=== PATIENT | female | born 1925 | race Caucasian/White ===

== ENCOUNTER 2017-09-01 18:50 | Inpatient (IN) ==
[2017-09-01] MEDS: Albuterol 2.5 MG/3 ML NEBULIZER IH ONE ×2 (19:00→21:37)
[2017-09-01] MEDS ORDERED: 0.9 % Sodium Chloride 1,000 ML IVC ONE (19:04)
[2017-09-01] MEDS ORDERED: Ipratropium/Albuterol Neb 3 ML IH ONE (19:05)
[2017-09-01] MEDS ORDERED: methylPREDNISolone 125 MG/2 ML VIAL IVP ONE (19:05)
[2017-09-01 19:27] LABS: Basophils % 0.1 %; Eosinophils # 0.1 K/mcL (0.0-0.6); Eosinophils % 0.5 %; Hematocrit 36.5 % (35.3-44.9); Hemoglobin 12.8 g/dL (11.5-15.4); Immature Granulocytes % 0.6 % (0-4); Lymphocytes # 0.8 K/mcL (0.6-4.6); Lymphocytes % 6.1 %; Mean Corpuscular HGB Conc 35.1 g/dL (31.6-35.5); Mean Corpuscular Hemoglobin 30.3 pg (28.0-33.3); Mean Corpuscular Volume 86.5 fL (83.0-100.0); Mean Platelet Volume 9.6 fL (9.4-12.4); Monocytes # 1.1 K/mcL (0.0-1.3); Neutrophils # 10.3 K/mcL (1.6-8.9); Platelet Count 275 K/mcL (140-400); Red Blood Count 4.22 M/mcL (3.82-4.97); Red Cell Distribution Width 12.5 % (11.5-14.5); Segmented Neutrophils % 83.7 %
[2017-09-01 19:28] LABS: ABG Base Excess 8 mEq/L (-2 to 3); ABG HCO3 32 mEq/L (21-27); ABG Oxygen Saturation 90 % (95-98); ABG PCO2 39 mmHg (35-45); ABG PH 7.52 pH Units (7.32-7.45); ABG PO2 54 mmHg (85-104); ABG TCO2 33 mEq/L (20-26)
[2017-09-01 19:36] LABS: INR 1.3; Prothrombin Time 14.6 Seconds (9.4-12.1)
[2017-09-01 19:38] LABS: Activated Partial Thrombo Time 28.6 Seconds (26.0-36.0)
[2017-09-01 19:39] LABS: Alanine Aminotransferase 76 Units/L (0-55); Albumin 3.2 g/dL (3.5-5.0); Albumin/Globulin Ratio 0.8 (1.1-2.2); Alkaline Phosphatase 174 Units/L (38-126); Aspartate Amino Transferase 96 Units/L (5-34); BUN/Creatinine Ratio 20 (6-26); Bilirubin,Direct 0.9 mg/dL (0.0-0.5); Bilirubin,Indirect 0.8 mg/dL (0.0-1.2); Bilirubin,Total 1.7 mg/dL (0.2-1.2); Blood Urea Nitrogen 15 mg/dL (7-20); Calcium 9.7 mg/dL (8.6-10.8); Carbon Dioxide 31 mEq/L (19-29); Chloride 87 mEq/L (98-109); Glucose 152 mg/dL (70-99); Magnesium 1.5 mg/dL (1.6-2.6); Osmolality,Calculated 272 (280-300); Phosphorous 2.4 mg/dL (2.3-4.7); Potassium 3.1 mEq/L (3.5-4.5); Sodium 129 mEq/L (136-145); Total Protein 7.2 g/dL (6.0-8.3); eGFR For African Americans > 60 (> 60); eGFR For Non-African Americans > 60 (> 60)
--- NOTE | 2017-09-01 19:43 | Emergency Department Note ---
Disposition Clinical Impression: Acute exacerbation of chronic obstructive airways disease, Sepsis Community acquired pneumonia Qualifiers: Laterality: right Lung location: unspecified part of lung Qualified Code(s): J18.9 - Pneumonia, unspecified organism Disposition: Admitted As Inpatient Condition: Fair Referrals: NONE,PCP [Primary Care Provider] - Forms: ED Satisfaction Letter Time of Disposition: 20:51 SOB HPI - General Chief Complaint: ED Shortness of Breath/Dyspnea Stated Complaint: MONSE Time Seen by Provider: 09/01/17 19:00 Source: patient, family Mode of arrival: wheelchair Limitations: no limitations Nursing Notes Reviewed: Yes Vital Signs Reviewed: Yes - History of Present Illness 89 year old female presented to the ED complaining of shortness of breath. Patient does have history of COPD says that she has had a hard time breathing normally only uses oxygen at night but has not used all day. She states that she has had a cough and a fever. There is fever of 102 at home. Patient was recently seen by gastroenterology here and had a upper endoscopy done approximately one week ago. Otherwise she has been fairly healthy. They stated this cough and not feeling well has been going on for approximately 2 months but is noticeably increased over the last 2 days. Denies what caused him to come in. She is not complaining of any chest pain she is only having shortness of breath there is no headache, blurry vision, neck pain, abdominal pain, seen with urination or changes in bowel movements there is no generalized pain going down the arms. They said the patient has been noticeably weaker. Otherwise the patient is having no complaints. - Related Data Home Medications Medication Instructions Recorded Confirmed Acetaminophen [Pain Relief] 500 mg PO DAILY PRN 06/15/17 09/01/17 Calcium Carbonate [Calcium] 500 mg PO DAILY 06/15/17 09/01/17 Metoprolol [Lopressor] 25 mg PO BID 06/15/17 09/01/17 Montelukast [Singulair] 10 mg PO DAILY 06/15/17 09/01/17 Multivit-Min/FA/Lycopen/Lutein 1 tab PO DAILY 06/15/17 09/01/17 [Centrum Silver Tablet] Potassium Chloride [K-Tab ER] 10 meq PO DAILY 06/15/17 09/01/17 Tiotropium [Spiriva] 18 mcg IH 0700 06/15/17 09/01/17 Tramadol HCl [Ultram] 50 - 100 mg PO Q4H PRN 06/15/17 09/01/17 Vit A/Vit C/Vit E/Zinc/Copper 1 tab PO BID 06/15/17 09/01/17 [Preservision Areds Tablet] Zolpidem [Ambien] 5 mg PO HS PRN 06/15/17 09/01/17 amLODIPine [Norvasc] 5 mg PO DAILY 06/15/17 09/01/17 hydroCHLOROthiazide 25 mg PO DAILY 06/15/17 09/01/17 [Hydrochlorothiazide] Aspirin 81 mg PO DAILY 08/26/17 09/01/17 Atorvastatin Calcium [Lipitor] 20 mg PO DAILY 08/26/17 09/01/17 Ferrous Gluconate 324 mg PO BID 08/26/17 09/01/17 Gabapentin [Neurontin] 100 mg PO TID 08/26/17 09/01/17 Loratadine [Allergy Relief] 10 mg PO DAILY 08/26/17 09/01/17 raNITIdine HCl [Ranitidine HCl] 150 mg PO DAILY 08/26/17 09/01/17 Allergies Allergy/AdvReac Type Severity Reaction Status Date / Time No Known Allergies Allergy Verified 08/26/17 09:28 Review of Systems: 10 point review of systems done and negative unless otherwise stated in history of present illness. All systems ED: reviewed and negative except as stated. Review of Systems: As Per HPI Past Medical History - Past Medical History Attestation: Yes The following information was validated with the patient. Medical history: Reports: COPD, diabetes, GERD, hypertension Psychiatric history: Reports: no psych history - Social History Smoking Status: Former smoker Smokeless Tobacco Status: No Alcohol use: Reports: none Drug use: Reports: none Physical Exam - General Limitations: no limitations General appearance: alert, in no apparent distress - Head Head exam: atraumatic, normocephalic, normal inspection - Eye Eye exam: Present: normal appearance, PERRL, EOMI - ENT ENT exam: normal exam, normal oropharynx, mucous membranes moist - Neck Neck exam: Present: normal inspection, full ROM, trachea midline - Chest Chest inspection: Present: normal inspection, symmetric chest wall rise - Respiratory Respiratory exam: Present: respiratory distress, wheezes (Bilaterally in upper and lower lobes.), accessory muscle use, prolonged expiratory phase - Cardiovascular Cardiovascular exam: Present: normal rhythm, tachycardia, normal heart sounds - Abdominal Exam Abdominal exam: Present: soft, Non-Tender. Absent: tenderness, distention, guarding, rebound, rigidity - Extremities Exam Extremities exam: Present: normal inspection, full ROM, normal capillary refill. Absent: tenderness, pedal edema - Back Exam Back exam: Present: normal inspection, full ROM. Absent: tenderness, CVA tenderness (R), CVA tenderness (L) - Neurological Exam Neurological exam: Present: alert, oriented X3 - Skin Skin exam: Present: warm, dry, intact, normal color Course Course Narrative: 89-year-old female presents to the ED complaining of shortness of breath. She was tachycardic and had a fever of 102.9 and was to Her she did meet sepsis criteria at this time we did start sepsis protocol she was non-septic shock at this time. So we just gave her 1 L of fluids. Patient was given 2 nebs will also get blood cultures, lactate with the time lactate, CBC, CMP as well as a troponin. With EKG and chest x-ray. Patient most likely will need admission. Patient's family are okay with this plan. Vital Signs Temperature 101.0 F H 09/01/17 18:51 Pulse Rate 101 09/01/17 18:51 Respiratory Rate 22 09/01/17 18:51 Blood Pressure 134/71 09/01/17 18:51 O2 Sat by Pulse Oximetry 89 09/01/17 18:51 Temperature 101.0 F H 09/01/17 18:51 Pulse Rate 101 09/01/17 18:51 Respiratory Rate 22 09/01/17 19:28 Blood Pressure 134/71 09/01/17 18:51 O2 Sat by Pulse Oximetry 92 09/01/17 19:28 Oxygen Delivery Oxygen Delivery Nasal Cannula Shortness of Breath/Dyspnea - [facility] Narrative Medical decision making narrative: 89-year-old female presents the ED with fever, tachypnea, shortness of breath, tachycardia. She states he has been going on for a few days. She has a history of COPD. Upon examining her patient was very tachypnea And wheezes bilaterally. We did give patient triple DuoNeb treatment which did help her feel much better. The wheezes were noticeably gone afterwards. She detailed still have mild expiratory wheezes after that. She did meet sepsis criteria but was not in septic shock. We gave her 1.5 L of IV fluids, Solu-Medrol, we did blood cultures as well as basic labs. EKG came back normal. Chest x-ray did show a pneumonia on the right side. We started patient on Rocephin and Levaquin. The patient did not have an elevated troponin she did have a leukocytosis with a left shift. She did have elevated liver enzymes as well as a bilirubin but she was not tender to the her abdomen at all. She did have her gallbladder taken out many years ago. She has had no complications with that. This most likely could just be to end organ liver damage causing this. This is not new B workup this time. She is not having any symptoms of this. Due to being dehydrated we have not obtained a urinalysis at this time. This can be followed up on the hospitalist service. Patient is being admitted to the hospitalist service for further evaluation due to her community-acquired pneumonia. Patient family agree to this plan. I spoke with Dr. Greenberg the hospital as he agreed to accept the patient to their service. Patient is admitted in stable condition. Chest X-Ray 09/01/17 19:05 IMPRESSION: Patchy airspace opacities in the mid to lower lungs bilaterally, increased when compared the previous exam. Patchy pneumonia and pulmonary edema are considered. D/ / Atif Santiago MD / Atif Santiago MD Interpreting Provider: Atif Santiago MD - Medical Records Medical records reviewed: Yes I reviewed the patient's medical records. - Lab Data Lab results reviewed: Yes I reviewed the patient's lab results. Result diagrams: 09/01/17 19:20 09/01/17 19:20 Lab Results 09/01/17 09/01/17 09/01/17 Range/Units 19:20 19:20 19:20 WBC 12.3 H (4.3-11.1) K/mcL RBC 4.22 (3.82-4.97) M/mcL Hgb 12.8 (11.5-15.4) g/dL Hct 36.5 (35.3-44.9) % MCV 86.5 (83.0-100.0) fL MCH 30.3 (28.0-33.3) pg MCHC 35.1 (31.6-35.5) g/dL RDW 12.5 (11.5-14.5) % Plt Count 275 (140-400) K/mcL MPV 9.6 (9.4-12.4) fL Immature Gran % 0.6 (0-4) % Seg Neutrophils % 83.7 % Lymphocytes % 6.1 % Monocytes % 9.0 % Eosinophils % 0.5 % Basophils % 0.1 % Neutrophils # 10.3 H (1.6-8.9) K/mcL Lymphocytes # 0.8 (0.6-4.6) K/mcL Monocytes # 1.1 (0.0-1.3) K/mcL Eosinophils # 0.1 (0.0-0.6) K/mcL Basophils # 0.0 (0.0-0.2) K/mcL PT 14.6 H (9.4-12.1) Seconds INR 1.3 APTT 28.6 (26.0-36.0) Seconds ABG pH (7.32-7.45) pH Units ABG pCO2 (35-45) mmHg ABG pO2 (85-104) mmHg ABG HCO3 (21-27) mEq/L ABG Total CO2 (20-26) mEq/L ABG O2 Saturation (95-98) % ABG Base Excess (-2 to 3) mEq/L Sodium 129 L (136-145) mEq/L Potassium 3.1 L (3.5-4.5) mEq/L Chloride 87 L (98-109) mEq/L Carbon Dioxide 31 H (19-29) mEq/L BUN 15 (7-20) mg/dL Creatinine 0.76 (0.57-1.11) mg/dL Est GFR ( Amer) > 60 (> 60) Est GFR (Non-Af Amer) > 60 (> 60) BUN/Creatinine Ratio 20 (6-26) Glucose 152 H (70-99) mg/dL Calculated Osmolality 272 L (280-300) Lactic Acid (0.5-2.2) mmol/L Calcium 9.7 (8.6-10.8) mg/dL Phosphorus 2.4 (2.3-4.7) mg/dL Magnesium 1.5 L (1.6-2.6) mg/dL Total Bilirubin 1.7 H (0.2-1.2) mg/dL Direct Bilirubin 0.9 H (0.0-0.5) mg/dL Indirect Bilirubin 0.8 (0.0-1.2) mg/dL AST 96 H (5-34) Units/L ALT 76 H (0-55) Units/L Alkaline Phosphatase 174 H (38-126) Units/L Troponin I (0-0.03) ng/mL Serum Total Protein 7.2 (6.0-8.3) g/dL Albumin 3.2 L (3.5-5.0) g/dL Globulin 4.0 H (2.4-3.5) g/dL Albumin/Globulin Ratio 0.8 L (1.1-2.2) 09/01/17 09/01/17 09/01/17 Range/Units 19:20 19:20 19:25 WBC (4.3-11.1) K/mcL RBC (3.82-4.97) M/mcL Hgb (11.5-15.4) g/dL Hct (35.3-44.9) % MCV (83.0-100.0) fL MCH (28.0-33.3) pg MCHC (31.6-35.5) g/dL RDW (11.5-14.5) % Plt Count (140-400) K/mcL MPV (9.4-12.4) fL Immature Gran % (0-4) % Seg Neutrophils % % Lymphocytes % % Monocytes % % Eosinophils % % Basophils % % Neutrophils # (1.6-8.9) K/mcL Lymphocytes # (0.6-4.6) K/mcL Monocytes # (0.0-1.3) K/mcL Eosinophils # (0.0-0.6) K/mcL Basophils # (0.0-0.2) K/mcL PT (9.4-12.1) Seconds INR APTT (26.0-36.0) Seconds ABG pH 7.52 H (7.32-7.45) pH Units ABG pCO2 39 (35-45) mmHg ABG pO2 54 L (85-104) mmHg ABG HCO3 32 H (21-27) mEq/L ABG Total CO2 33 H (20-26) mEq/L ABG O2 Saturation 90 L (95-98) % ABG Base Excess 8 H (-2 to 3) mEq/L Sodium (136-145) mEq/L Potassium (3.5-4.5) mEq/L Chloride (98-109) mEq/L Carbon Dioxide (19-29) mEq/L BUN (7-20) mg/dL Creatinine (0.57-1.11) mg/dL Est GFR ( Amer) (> 60) Est GFR (Non-Af Amer) (> 60) BUN/Creatinine Ratio (6-26) Glucose (70-99) mg/dL Calculated Osmolality (280-300) Lactic Acid 1.3 (0.5-2.2) mmol/L Calcium (8.6-10.8) mg/dL Phosphorus (2.3-4.7) mg/dL Magnesium (1.6-2.6) mg/dL Total Bilirubin (0.2-1.2) mg/dL Direct Bilirubin (0.0-0.5) mg/dL Indirect Bilirubin (0.0-1.2) mg/dL AST (5-34) Units/L ALT (0-55) Units/L Alkaline Phosphatase (38-126) Units/L Troponin I 0.03 (0-0.03) ng/mL Serum Total Protein (6.0-8.3) g/dL Albumin (3.5-5.0) g/dL Globulin (2.4-3.5) g/dL Albumin/Globulin Ratio (1.1-2.2) - Radiology Data Radiology results reviewed: Yes I reviewed the patient's radiology results. Chest X-Ray 09/01/17 19:05 IMPRESSION: Patchy airspace opacities in the mid to lower lungs bilaterally, increased when compared the previous exam. Patchy pneumonia and pulmonary edema are considered. D/ / Atif Santiago MD / Atif Santiago MD Interpreting Provider: Atif Santiago MD - EKG Data EKG attestation: Yes I reviewed and interpreted this EKG. EKG results narrative: EKG done at 1911 review by myself and the attending shows sinus rhythm at a rate of 95, MA interval 108, QRS 94, QTC 328 with a normal axis. There is no acute ST changes, no acute T-wave abnormalities, no signs of her strainer hypertrophy, no signs of any heart block, no signs of WPW/Brugada syndrome. This EKG there is no acute changes when compared with old one done 08/08/12. Attestation Statement - Attestation Attestation: I examined this patient and my medical decision-making was reviewed with the Resident Physician. I agree with the documented findings, disposition and treatment plan as described except to the extent set forth below. Patient to ED with cough fever not feeling well. Short of breath. On examination she is visibly dyspneic with accessory muscle use. Febrile 101. Diffuse expiratory wheezing. Plan. Patient meets sepsis criteria. She is given nebs and steroids. IV antibiotics and will admit. Patient with pneumonia with sepsis. 40 minutes of critical care exclusive of separately billed procedures.
[2017-09-01] MEDS ORDERED: Levofloxacin 750 MG/150 ML 750 MG/150 ML BAG IVPB ONE (20:00)
[2017-09-01] MEDS ORDERED: cefTRIAXone 1,000 MG in Water for inj. (sterile) 10 ML IVP ONE (20:00)
[2017-09-01] MEDS ORDERED: 0.9 % Sodium Chloride 500 ML IVC ONE (20:31)
[2017-09-01] MEDS ORDERED: Albuterol 2.5 MG/3 ML NEBULIZER ONE (21:36)
[2017-09-01 22:24] LABS: Bilirubin,Urine Negative (Negative); Blood,Urine Negative (Negative); Clarity,Urine Clear (Clear); Color,Urine Yellow (Yellow); Glucose,Urine (UA) 100 mg/dL (Normal); Ketones,Urine Negative (Negative); Leukocyte Esterase,Urine Small (Negative); Nitrite,Urine Negative (Negative); PH,Urine 6.5 pH Units (5.0-8.0); Protein,Urine Trace mg/dL (Neg-Trace); Specific Gravity,Urine 1.016 (1.010-1.025); Urobilinogen,Urine Normal (Normal)
[2017-09-01 22:26] LABS: Bacteria,Urine None Seen per hpf (None-Few); Hyaline Casts,Urine None Seen per lpf (None-Few); RBC,Urine 0-3 per hpf (0-3); Squamous Epithelial Cell,Urine Many per lpf (None-Few)
--- NOTE | 2017-09-01 23:17 | Internal Med History&Physical ---
<Jennifer Zhou - Last Filed: 09/02/17 03:21> Date of Encounter: 09/02/17 Time of Encounter: 23:08 Assessment and Plan (1) Sepsis Current visit: Yes Status: Acute Patient meets sepsis criteria: tachycardia, elevated WBC, febrile This looks to be most likely CA-pneumonia vs viral infection She has shortness of breathe 2 months but worse in past few days. Hx COPD and aortic valve replacement (12 & 5 years ago). Patient is on 2 L oxygen at night, but has had to use 2 to 5 L during the day for the past couple days. CXR demonstrated patchy airspace capacities in the mid to lower lungs bilaterally concerning for pneumonia and pulmonary edema. WBC 12.3 BNP 251 lactic acid 1.3 ABG: pH 7.52 CO2 39 PO2 54 HCO3 32 saturation 90 patient is on 3L nasal cannula, 97% saturation Plan: Blood cultures pending Levaquin IV Rocephin IV respiratory panel ordered VBG ordered urine legionella and pneumococcal ordered U/A ordered IV fluids duoneb PRN supplemental oxygen Qualifiers: Sepsis type: sepsis due to unspecified organism Qualified Code(s): A41.9 - Sepsis, unspecified organism (2) Community acquired pneumonia Current visit: Yes Status: Acute This looks to be most likely CA- pneumonia. She has shortness of breathe 2 months but worse in past few days. Hx COPD and aortic valve replacement (12 & 5 years ago). Patient is on 2 L oxygen at night, but has had to use 2 to 5 L during the day for the past couple days. Reports cough. She denies hospitalization within the last 3 months. CXR demonstrated patchy airspace capacities in the mid to lower lungs bilaterally concerning for pneumonia and pulmonary edema. see plan above Qualifiers: Laterality: right Lung location: unspecified part of lung Qualified Code( s): J18.9 - Pneumonia, unspecified organism (3) Metabolic alkalosis Current visit: Yes Status: Acute ABG demonstrated metabolic alkalosis. Patient reports that she has been vomiting after she eats for awhile now and last week had an EGD and dilation done by Dr. Harvey. Most likly due to vomiting that has been on going. ABG: pH 7.52 CO2 39 PO2 54 HCO3 32 saturation 90 potassium 3.1 magnesium 1.5 supplement potassium and magnesium zofran prn nausea VBG ordered (4) Hypokalemia Current visit: Yes Status: Acute Most likely due to vomiting potassium 3.1 magnesium 1.5 supplement potassium and magnesium zofran prn nausea continue to monitor (5) Hypomagnesemia Current visit: Yes Status: Acute Most likely due to vomiting potassium 3.1 magnesium 1.5 supplement potassium and magnesium zofran prn nausea continue to monitor Internal Medicine - H&P: HPI Chief complaint: shortness of breathe Admitted From: Home Plans for Post Hospital Care: Home History of present illness: Ms. Dunbar is a 89 year old female with a past medical history of COPD, aortic valve replacement (12 & 5yr ago), HLD, HTN, GERD presented to [place] ED complaining of shortness of breathe for 2 months but has gotten worse over the past 3 days. She stated that exerting herself made it worse and that oxygen and rest made it better. She is on 2L oxygen at night but has had to wear it throughout the day using 2-5L oxygen. When she first lays down in bed she has difficulty breathing for a few minutes, she lays propped up with pillows. She admits cough, wheezing, vomiting, and fever. She has been vomiting almost everyday for awhile now due to nausea after she eats. Denies chills, chest pain , abdominal pain, orthopnea, PND, headache, diarrhea. She denies recent hosptialization, travel. She had an EGD by Dr. Harvey last week with dilation and biopsies taken. She is alongside family who is helping with history as well. She does not know when her last Echo was or where it was done at. 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 In the ED she was placed on Bipap, blood cultures sent, given a dose of levaquin and ceftriaxone and 2 IV fluid boluses. Past Med Surg Social Fam HX - Past Medical History Medical history: COPD, diabetes, GERD, hypertension Psychiatric history: no psych history - Past Surgical History Surgical History: heart valve replacement (aortic valve replacement 12 and 5yr ago) - Social History Smoking Status: Former smoker Smokeless Tobacco Status: No Alcohol use: none Drug use: none Current living situation: Home - Family History Mother Hx Family Cardiac Disorders: Yes Internal Medicine - H&P: Meds Acetaminophen [Pain Relief] 500 mg PO DAILY PRN 06/15/17 [History] Calcium Carbonate [Calcium] 500 mg PO DAILY 06/15/17 [History] Metoprolol [Lopressor] 25 mg PO BID 06/15/17 [History] Montelukast [Singulair] 10 mg PO DAILY 06/15/17 [History] Multivit-Min/FA/Lycopen/Lutein [Centrum Silver Tablet] 1 tab PO DAILY 06/15/17 [ History] Potassium Chloride [K-Tab ER] 10 meq PO DAILY 06/15/17 [History] Tiotropium [Spiriva] 18 mcg IH 0700 06/15/17 [History] Tramadol HCl [Ultram] 50 - 100 mg PO Q4H PRN 06/15/17 [History] Vit A/Vit C/Vit E/Zinc/Copper [Preservision Areds Tablet] 1 tab PO BID 06/15/17 [History] Zolpidem [Ambien] 5 mg PO HS PRN 06/15/17 [History] amLODIPine [Norvasc] 5 mg PO DAILY 06/15/17 [History] hydroCHLOROthiazide [Hydrochlorothiazide] 25 mg PO DAILY 06/15/17 [History] Aspirin 81 mg PO DAILY 08/26/17 [History] Atorvastatin Calcium [Lipitor] 20 mg PO DAILY 08/26/17 [History] Ferrous Gluconate 324 mg PO BID 08/26/17 [History] Gabapentin [Neurontin] 100 mg PO TID 08/26/17 [History] Loratadine [Allergy Relief] 10 mg PO DAILY 08/26/17 [History] raNITIdine HCl [Ranitidine HCl] 150 mg PO DAILY 08/26/17 [History] 3 Allergy/AdvReac Type Severity Reaction Status Date / Time No Known Allergies Allergy Verified 08/26/17 09:28 All Systems PM: A 10-system review of systems was performed and is negative for pertinent findings except as documented above in the HPI. - Constitutional Constitutional: fever(s), no chills, no malaise, no night sweats - EENT Eyes: no blurry vision, no change in vision Ears: no ear pain Nose, mouth and throat: no dysphagia, no neck pain, no sore throat - Cardiovascular Cardiovascular ROS IM: no chest pain, no orthopnea, no palpitations, no paroxysmal nocturnal dyspnea - Respiratory Respiratory: dyspnea, dyspnea on exertion, wheezing, no cough, no hemoptysis, no excessive phlegm production - Gastrointestinal Gastrointestinal: vomiting, no abdominal pain, no diarrhea, no melena - Genitourinary Genitourinary: no dysuria, no hematuria - Integumentary Integumentary IM: no new lesions, no rash - Neurological Neurological ROS: no dizziness, no headache(s) - Constitutional Vitals: Temp Pulse Resp BP Pulse Ox 98.0 F 118 30 132/99 98 09/01/17 22:41 09/01/17 22:41 09/01/17 22:41 09/01/17 22:41 09/01/17 22:41 General appearance: Present: mild distress, A&O X 3, pleasant - Head Head exam: Present: atraumatic, normocephalic - Eye Eye exam: Present: conjuntiva pink. Absent: scleral icterus - ENT ENT exam: Present: mucous membranes dry - Respiratory Respiratory exam: Present: rales, wheezes. Absent: accessory muscle use, respiratory distress - Cardiovascular Cardiovascular exam: Present: RRR, +S1, systolic murmur. Absent: gallop, rubs - GI/Abdominal GI/Abdominal exam: Present: normal bowel sounds, soft. Absent: firm, guarding, tenderness - Extremities Exam Extremities exam: Absent: calf tenderness, joint swelling - Neurological Exam Neurological exam: Present: altered, oriented X3 - Skin Skin exam: Present: dry, intact Internal Med - H&P Results - Labs CBC & Chem 7: 09/01/17 19:20 09/01/17 19:20 Labs: Urine 09/01/17 Range/Units 22:10 Urine Color Yellow (Yellow) Urine Clarity Clear (Clear) Urine pH 6.5 (5.0-8.0) pH Units Ur Specific [place] 1.016 (1.010-1.025) Urine Protein Trace (Neg-Trace) mg/dL Urine Glucose (UA) 100 H (Normal) mg/dL <Eduardo Ricci - Last Filed: 09/02/17 06:39> Date of Encounter: 09/02/17 Internal Medicine - H&P: HPI History of present illness: Ms. Dunbar is a 89 year old female All Systems PM: A 10-system review of systems was performed and is negative for pertinent findings except as documented above in the HPI. - Constitutional Vitals: Temp Pulse Resp BP Pulse Ox 98.0 F 99 20 120/66 97 09/01/17 22:41 09/02/17 00:43 09/02/17 00:43 09/02/17 00:43 09/02/17 00:43 Internal Med - H&P Results - Labs CBC & Chem 7: 09/02/17 03:02 09/02/17 03:02 Labs: Short CBC 09/02/17 Range/Units 03:02 WBC 10.5 (4.3-11.1) K/mcL Hgb 11.9 (11.5-15.4) g/dL Hct 33.9 L (35.3-44.9) % Plt Count 240 (140-400) K/mcL Neutrophils # 9.9 H (1.6-8.9) K/mcL BMP 09/02/17 03:02 Sodium 128 L Potassium 2.5 L* Chloride 88 L Carbon Dioxide 28 BUN 16 Creatinine 0.86 Glucose 256 H Calcium 9.5 Liver Function 09/02/17 Range/Units 03:02 Total Bilirubin 1.3 H (0.2-1.2) mg/dL AST 64 H (5-34) Units/L ALT 66 H (0-55) Units/L Alkaline Phosphatase 159 H (38-126) Units/L Albumin 2.9 L (3.5-5.0) g/dL Urine 09/01/17 Range/Units 22:10 Urine Color Yellow (Yellow) Urine Clarity Clear (Clear) Urine pH 6.5 (5.0-8.0) pH Units Ur Specific [place] 1.016 (1.010-1.025) Urine Protein Trace (Neg-Trace) mg/dL Urine Glucose (UA) 100 H (Normal) mg/dL - ABG Interpretation ABG results: 09/02/17 03:24 VBG pH 7.40 VBG pCO2 51 VBG pO2 102 H VBG HCO3 32 H - Attending Attestation I conducted a face to face diagnostic evaluation of this patient and my medical decision-making was reviewed with the Resident Physician, Dr. Jennifer Zhou. I agree with the documented findings, disposition and treatment plan as described except to the extent set forth below: Reports cough with sputum production for the last 1 week. On examination she has prominent expiratory wheezes. Plan: I will add COPD exacerbation to the assessment and plan. We will add IV steroids and schedule inhaled bronchodilators.
[2017-09-01] MEDS ORDERED: Naloxone 0.4 MG/ML INJ IVP PRN (23:24)
[2017-09-01] MEDS ORDERED: Ipratropium/Albuterol Neb 3 ML IH PRN (23:31)
[2017-09-02] MEDS: 0.9 % Sodium Chloride 1,000 ML IVC SCH ×2 (02:57→18:20)
[2017-09-02 03:21] LABS: Basophils % 0.1 %; Hematocrit 33.9 % (35.3-44.9); Hemoglobin 11.9 g/dL (11.5-15.4); Immature Granulocytes % 0.8 % (0-4); Lymphocytes # 0.2 K/mcL (0.6-4.6); Lymphocytes % 2.2 %; Mean Corpuscular HGB Conc 35.1 g/dL (31.6-35.5); Mean Corpuscular Hemoglobin 30.4 pg (28.0-33.3); Mean Corpuscular Volume 86.5 fL (83.0-100.0); Mean Platelet Volume 9.6 fL (9.4-12.4); Monocytes # 0.3 K/mcL (0.0-1.3); Monocytes % 2.5 %; Neutrophils # 9.9 K/mcL (1.6-8.9); Platelet Count 240 K/mcL (140-400); Red Blood Count 3.92 M/mcL (3.82-4.97); Red Cell Distribution Width 12.5 % (11.5-14.5); Segmented Neutrophils % 94.4 %
[2017-09-02 03:28] LABS: VBG HCO3 32 mEq/L (21-27); VBG PCO2 51 mmHg (41-51); VBG PO2 102 mmHg (25-50)
[2017-09-02 03:38] LABS: Alanine Aminotransferase 66 Units/L (0-55); Albumin 2.9 g/dL (3.5-5.0); Albumin/Globulin Ratio 0.8 (1.1-2.2); Alkaline Phosphatase 159 Units/L (38-126); Aspartate Amino Transferase 64 Units/L (5-34); BUN/Creatinine Ratio 19 (6-26); Bilirubin,Total 1.3 mg/dL (0.2-1.2); Blood Urea Nitrogen 16 mg/dL (7-20); Calcium 9.5 mg/dL (8.6-10.8); Carbon Dioxide 28 mEq/L (19-29); Chloride 88 mEq/L (98-109); Globulin 3.7 g/dL (2.4-3.5); Glucose 256 mg/dL (70-99); Magnesium 2.9 mg/dL (1.6-2.6); Osmolality,Calculated 276 (280-300); Sodium 128 mEq/L (136-145); Total Protein 6.6 g/dL (6.0-8.3); eGFR For African Americans > 60 (> 60); eGFR For Non-African Americans > 60 (> 60)
[2017-09-02 03:41] LABS: Potassium 2.5 mEq/L (3.5-4.5)
[2017-09-02] MEDS ORDERED: Potassium Chloride 40 MEQ, Lidocaine 1% 2 ML in D5% in Water 500 ML IVPB ONE (03:45)
[2017-09-02] MEDS ORDERED: Potassium Chloride Elixir 20 MEQ/15 ML UDC PO ONE ×2 (03:51→19:00)
[2017-09-02] MEDS: MethylPREDNISolone 40 MG/ML VIAL IVP SCH ×3 (08:22→23:33)
[2017-09-02] MEDS: Ipratropium/Albuterol Neb 3 ML IH SCH ×4 (08:33→20:29)
[2017-09-02] MEDS ORDERED: cefTRIAXone 1,000 MG in Water for inj. (sterile) 10 ML IVP SCH (09:00)
--- NOTE | 2017-09-02 10:02 | Internal Med Progress Note ---
<Bruce Reina - Last Filed: 09/02/17 12:55> Date of Encounter: 09/02/17 Time of Encounter: 09:59 - Assessment and plan (1) Sepsis Current Visit: Yes Status: Acute Assessment and plan: Tachycardia, leukocytosis, fever. Likely secondary to community-acquired pneumonia. WBC count has normalized on a.m. labs and vital signs are improving , temperature 98.1 although she is still tachycardic near 100 bpm Blood cultures, respiratory panel are pending. Patient has been receiving IV antibiotics. UA significant for small leukocyte esterase, culture pending Qualifiers: Sepsis type: sepsis due to unspecified organism Qualified Code(s): A41.9 - Sepsis, unspecified organism (2) Community acquired pneumonia Current Visit: Yes Status: Acute Assessment and plan: CXR with patchy airspace opacities bilateral mid to lower lungs. Patient has been receiving IV Levaquin and Rocephin. Given her history of recent intubation for GI procedure, biopsy and esophageal dilation, we will cover for possible aspiration pneumonia with Flagyl. Stop Rocephin. O2 saturation 97% on 3 L nasal cannula Qualifiers: Laterality: right Lung location: unspecified part of lung Qualified Code( s): J18.9 - Pneumonia, unspecified organism (3) Metabolic alkalosis Current Visit: Yes Status: Acute Assessment and plan: Postprandial emesis for at least several weeks, EGD and dilation performed last week. Supplement potassium and magnesium, Zofran when necessary nausea (4) Hypokalemia Current Visit: Yes Status: Acute Assessment and plan: Most likely related to recent vomiting. Potassium was low at 3.1 and replacement was ordered but not administered and decreased to 2.5. 40 mEq KCl was infused early this a.m. in addition to 40 mEq PO. Order placed to recheck (5) Hypomagnesemia Current Visit: Yes Status: Acute Assessment and plan: On the low side at 1.5, this was replaced and increase to 2.9 - Subjective Interval history: Ms. Dunbar has a history of COPD and bioprosthetic aortic valve replacement 2011. She presented to ED last night with SOB worsening over the past 3 days. Increased oxygen requirement from 2 L at night to up to 5 L throughout the day. Patient seen and examined at bedside. She was awake and in no acute distress although her breathing appears somewhat labored. She does say that her breathing is significantly better than when she came to the hospital. She denies chest pain, diaphoresis, abdominal pain, or other new symptoms. Her oxygen saturation was 97% when I was talking to her - Constitutional Vitals: Temp Pulse Resp BP Pulse Ox 98.1 F 104 20 146/68 99 09/02/17 07:25 09/02/17 08:31 09/02/17 08:33 09/02/17 07:25 09/02/17 08:33 General appearance: Present: mild distress, A&O X 3, pleasant - Respiratory Respiratory exam: Present: rales, rhonchi, wheezes. Absent: accessory muscle use, respiratory distress - Cardiovascular Cardiovascular exam: Present: RRR, +S1, systolic murmur. Absent: gallop, rubs - GI/Abdominal GI/Abdominal exam: Present: normal bowel sounds, soft, no peritoneal signs. Absent: distended, tenderness - Extremities Exam Extremities exam: Present: warm. Absent: calf tenderness, joint swelling, pedal edema - Neurological Exam Neurological exam: Present: alert, oriented X3, no focal deficits Internal Medicine: Result - Labs CBC & Chem 7: 09/02/17 03:02 09/02/17 09:52 - ABG Interpretation ABG results: ABG ABG pH 7.52 pH Units (7.32-7.45) H 09/01/17 19:25 ABG pCO2 39 mmHg (35-45) 09/01/17 19:25 ABG pO2 54 mmHg (85-104) L 09/01/17 19:25 ABG O2 Saturation 90 % (95-98) L 09/01/17 19:25 PT/INR, D-dimer PT 14.6 Seconds (9.4-12.1) H 09/01/17 19:20 Consult Discharge Plan - Plan Referrals: Tin Castillo CNP [Advanced Practice Nurse] - <Javid Fine - Last Filed: 09/02/17 15:45> Date of Encounter: 09/02/17 - Constitutional Vitals: Temp Pulse Resp BP Pulse Ox 98.1 F 104 22 158/70 96 09/02/17 11:17 09/02/17 12:30 09/02/17 11:17 09/02/17 11:17 09/02/17 11:17 Internal Medicine: Result - Labs CBC & Chem 7: 09/02/17 03:02 09/02/17 09:52 Labs: BMP 09/02/17 09:52 Sodium 131 L Potassium 3.0 L Chloride 90 L Carbon Dioxide 29 BUN 15 Creatinine 0.82 Glucose 275 H Calcium 9.4 - ABG Interpretation ABG results: ABG ABG pH 7.52 pH Units (7.32-7.45) H 09/01/17 19:25 ABG pCO2 39 mmHg (35-45) 09/01/17 19:25 ABG pO2 54 mmHg (85-104) L 09/01/17 19:25 ABG O2 Saturation 90 % (95-98) L 09/01/17 19:25 PT/INR, D-dimer PT 14.6 Seconds (9.4-12.1) H 09/01/17 19:20 - Attending Attestation I independently interviewed and examined this pt. I agree wiht the findings, assessment and plan of Dr. Reina, academic intern. Abx as discussed above. pt is improving. Continue close monitoring and electrolyte replacement.
[2017-09-02 10:13] LABS: BUN/Creatinine Ratio 18 (6-26); Blood Urea Nitrogen 15 mg/dL (7-20); Calcium 9.4 mg/dL (8.6-10.8); Carbon Dioxide 29 mEq/L (19-29); Chloride 90 mEq/L (98-109); Glucose 275 mg/dL (70-99); Osmolality,Calculated 283 (280-300); Sodium 131 mEq/L (136-145); eGFR For African Americans > 60 (> 60); eGFR For Non-African Americans > 60 (> 60)
[2017-09-02 10:38] LABS: Magnesium 2.2 mg/dL (1.6-2.6)
[2017-09-02] MEDS: MetroNIDAZOLE 500 MG/100 ML 500 MG/100 ML BAG IVPB SCH ×3 (14:05→23:33)
[2017-09-02] MEDS: traMADol 50 MG TABLET PO PRN ×2 (16:26→23:33)
[2017-09-02] MEDS: *HR* Heparin 5,000 UNIT/ML VIAL SQ SCH (18:12)
[2017-09-02 20:36] LABS: BUN/Creatinine Ratio 16 (6-26); Blood Urea Nitrogen 13 mg/dL (7-20); Calcium 9.4 mg/dL (8.6-10.8); Carbon Dioxide 28 mEq/L (19-29); Chloride 95 mEq/L (98-109); Glucose 240 mg/dL (70-99); Osmolality,Calculated 286 (280-300); Potassium 3.7 mEq/L (3.5-4.5); Sodium 134 mEq/L (136-145); eGFR For African Americans > 60 (> 60); eGFR For Non-African Americans > 60 (> 60)
[2017-09-02] MEDS: Insulin LISPRO 300 UNITS/3 ML VIAL SQ SCH (21:10)
[2017-09-02 21:19] LABS: Adenovirus Not Detected (Not Detect); Bordetella Pertussis Not Detected (Not Detect); Chlamydophila pneumoniae Not Detected (Not Detect); Coronavirus 229E Not Detected (Not Detect); Coronavirus HKU1 Not Detected (Not Detect); Coronavirus NL63 Not Detected (Not Detect); Coronavirus OC43 Not Detected (Not Detect); Human Metapneumovirus Not Detected (Not Detect); Human Rhinovirus/Enterovirus Not Detected (Not Detect); Influenza A Subtype 2009 H1 Not Detected (Not Detect); Influenza A Untypeable Not Detected (Not Detect); Influenza B Not Detected (Not Detect); Mycoplasma pneumoniae Not Detected (Not Detect); Parainfluenza Virus 1 Not Detected (Not Detect); Parainfluenza Virus 2 Not Detected (Not Detect); Parainfluenza Virus 3 ***DETECTED*** (Not Detect); Parainfluenza Virus 4 Not Detected (Not Detect); Respiratory Syncytial Virus Not Detected (Not Detect)
[2017-09-03] MEDS: Ipratropium/Albuterol Neb 3 ML IH SCH ×6 (00:19→19:59)
[2017-09-03 03:33] LABS: BUN/Creatinine Ratio 18 (6-26); Blood Urea Nitrogen 13 mg/dL (7-20); Calcium 8.8 mg/dL (8.6-10.8); Carbon Dioxide 28 mEq/L (19-29); Chloride 98 mEq/L (98-109); Glucose 191 mg/dL (70-99); Osmolality,Calculated 285 (280-300); Potassium 3.5 mEq/L (3.5-4.5); Sodium 135 mEq/L (136-145); eGFR For African Americans > 60 (> 60); eGFR For Non-African Americans > 60 (> 60)
[2017-09-03] MEDS: Ondansetron ODT 4 MG TAB.RAPDIS SL PRN ×2 (04:05→07:40)
[2017-09-03 04:46] LABS: Basophils % 0.1 %; Hematocrit 34.8 % (35.3-44.9); Hemoglobin 12.2 g/dL (11.5-15.4); Immature Platelets 4.8 % (1.1-6.1); Lymphocytes # 0.3 K/mcL (0.6-4.6); Lymphocytes % 2.3 %; Mean Corpuscular HGB Conc 35.1 g/dL (31.6-35.5); Mean Corpuscular Hemoglobin 30.5 pg (28.0-33.3); Monocytes # 0.6 K/mcL (0.0-1.3); Monocytes % 3.8 %; Neutrophils # 13.5 K/mcL (1.6-8.9); Red Cell Distribution Width 12.5 % (11.5-14.5); Segmented Neutrophils % 92.8 %
[2017-09-03 04:53] LABS: Platelet Count 369 K/mcL (140-400)
[2017-09-03] MEDS: *HR* Heparin 5,000 UNIT/ML VIAL SQ SCH ×2 (05:36→17:08)
[2017-09-03] MEDS: 0.9 % Sodium Chloride 1,000 ML IVC SCH ×3 (05:41→16:02)
[2017-09-03] MEDS ORDERED: *HR* Morphine 2 MG/ML SYRINGE IVP PRN (06:06)
[2017-09-03] MEDS ORDERED: Potassium Chloride Elixir 20 MEQ/15 ML UDC PO ONE ×2 (07:00→18:00)
[2017-09-03] MEDS: MethylPREDNISolone 40 MG/ML VIAL IVP SCH ×2 (07:15→16:01)
[2017-09-03] MEDS: MetroNIDAZOLE 500 MG/100 ML 500 MG/100 ML BAG IVPB SCH (07:19)
[2017-09-03] MEDS: traMADol 50 MG TABLET PO PRN (07:40)
[2017-09-03] MEDS: amLODIPine 5 MG TABLET PO SCH (08:40)
--- NOTE | 2017-09-03 08:45 | Internal Med Progress Note ---
<Bruce Reina - Last Filed: 09/03/17 13:49> Date of Encounter: 09/03/17 Time of Encounter: 08:43 - Assessment and plan (1) Sepsis Current Visit: Yes Status: Acute Assessment and plan: Tachycardia, leukocytosis, fever. Likely secondary to community-acquired pneumonia. WBC count had normalized yesterday. We discontinued Rocephin and started Flagyl due to her history of recent intubation for GI procedure, however , today her white count has increased to 14.6. She remains afebrile Serology came back positive for parainfluenza 3 only. UA significant for small leukocyte esterase, final urine culture was negative, patient does not have symptoms of UTI Qualifiers: Sepsis type: sepsis due to unspecified organism Qualified Code(s): A41.9 - Sepsis, unspecified organism (2) Community acquired pneumonia Current Visit: Yes Status: Acute Assessment and plan: CXR with patchy airspace opacities bilateral mid to lower lungs. Currently on IV Levaquin and Flagyl. O2 saturation 98% on 2 L nasal cannula Shortness of breath is stable but not improving. We will repeat PA + lateral CXR We will also consider Lasix to see if this helps with symptoms Qualifiers: Laterality: right Lung location: unspecified part of lung Qualified Code( s): J18.9 - Pneumonia, unspecified organism (3) Emesis Current Visit: Yes Status: Acute Assessment and plan: Nonbloody emesis 4 last night with associated moderate mid abdominal pain and tenderness. She was suffering from chronic vomiting prior to her recent GI procedure as well. No diarrhea. We will see how her symptoms respond to Zofran ODT Qualifiers: Qualified Code(s): R11.10 - Vomiting, unspecified (4) Metabolic alkalosis Current Visit: Yes Status: Acute Assessment and plan: Postprandial emesis for at least several weeks, EGD and dilation performed last week. Supplement potassium and magnesium, Zofran PRN nausea (5) Hypokalemia Current Visit: Yes Status: Acute Assessment and plan: Most likely related to recent vomiting. Potassium decreased to 2.5 at one point. We have been replacing and potassium this morning = 3.5. Additional replacement ordered for today (6) Hypomagnesemia Current Visit: Yes Status: Acute Assessment and plan: On the low side at 1.5, this was replaced and is normal today - Subjective Interval history: Ms. Dunbar has a history of COPD and bioprosthetic aortic valve replacement 2011. She presented to ED last night with SOB worsening over the past 3 days. Increased oxygen requirement from 2 L at night to up to 5 L throughout the day. Patient seen and examined at bedside. She was sleeping but easily aroused. Her breathing remains significantly better however she is now complaining of mid abdominal pain and emesis 4 as well as some pain in her thoracic spine that she attributes to lying in bed. She denies chest pain, fever, or chills - Constitutional Vitals: Temp Pulse Resp BP Pulse Ox 98.3 F 128 18 155/75 98 09/03/17 07:30 09/03/17 07:30 09/03/17 07:31 09/03/17 07:30 09/03/17 08:00 General appearance: Present: mild distress, A&O X 3, pleasant - Respiratory Respiratory exam: Present: decreased breath sounds, rales, rhonchi, wheezes. Absent: respiratory distress - Cardiovascular Cardiovascular exam: Present: RRR, +S1, +S2, systolic murmur. Absent: gallop, rubs - GI/Abdominal GI/Abdominal exam: Present: normal bowel sounds, soft, tenderness (Mild abdominal tenderness in the mid epigastrium), no peritoneal signs. Absent: distended, guarding - Extremities Exam Extremities exam: Present: warm. Absent: calf tenderness, cyanotic, pedal edema - Neurological Exam Neurological exam: Present: alert, oriented X3, no focal deficits Internal Medicine: Result - Labs CBC & Chem 7: 09/03/17 04:13 09/03/17 03:09 Labs: Short CBC 09/03/17 Range/Units 04:13 WBC 14.6 H (4.3-11.1) K/mcL Hgb 12.2 (11.5-15.4) g/dL Hct 34.8 L (35.3-44.9) % Plt Count 369 D (140-400) K/mcL Neutrophils # 13.5 H (1.6-8.9) K/mcL BMP 09/02/17 09/02/17 09/03/17 09:52 20:10 03:09 Sodium 131 L 134 L 135 L Potassium 3.0 L 3.7 3.5 Chloride 90 L 95 L 98 Carbon Dioxide 29 28 28 BUN 15 13 13 Creatinine 0.82 0.81 0.72 Glucose 275 H 240 H 191 H Calcium 9.4 9.4 8.8 - ABG Interpretation ABG results: ABG ABG pH 7.52 pH Units (7.32-7.45) H 09/01/17 19:25 ABG pCO2 39 mmHg (35-45) 09/01/17 19:25 ABG pO2 54 mmHg (85-104) L 09/01/17 19:25 ABG O2 Saturation 90 % (95-98) L 09/01/17 19:25 PT/INR, D-dimer PT 14.6 Seconds (9.4-12.1) H 09/01/17 19:20 Consult Discharge Plan - Plan Referrals: Tin Castillo CNP [Advanced Practice Nurse] - <Javid Fine - Last Filed: 09/03/17 15:30> Date of Encounter: 09/03/17 - Constitutional Vitals: Temp Pulse Resp BP Pulse Ox 98.0 F 94 17 140/76 98 09/03/17 11:48 09/03/17 11:48 09/03/17 12:04 09/03/17 11:48 09/03/17 12:04 Internal Medicine: Result - Labs CBC & Chem 7: 09/03/17 04:13 09/03/17 03:09 Labs: Short CBC 09/03/17 Range/Units 04:13 WBC 14.6 H (4.3-11.1) K/mcL Hgb 12.2 (11.5-15.4) g/dL Hct 34.8 L (35.3-44.9) % Plt Count 369 D (140-400) K/mcL Neutrophils # 13.5 H (1.6-8.9) K/mcL BMP 09/02/17 09/03/17 20:10 03:09 Sodium 134 L 135 L Potassium 3.7 3.5 Chloride 95 L 98 Carbon Dioxide 28 28 BUN 13 13 Creatinine 0.81 0.72 Glucose 240 H 191 H Calcium 9.4 8.8 - ABG Interpretation ABG results: ABG ABG pH 7.52 pH Units (7.32-7.45) H 09/01/17 19:25 ABG pCO2 39 mmHg (35-45) 09/01/17 19:25 ABG pO2 54 mmHg (85-104) L 09/01/17 19:25 ABG O2 Saturation 90 % (95-98) L 09/01/17 19:25 PT/INR, D-dimer PT 14.6 Seconds (9.4-12.1) H 09/01/17 19:20 - Attending Attestation I performed an independent interview and exam of this patient. I agree with the findings, assessment, plan of Dr. Reina. My input is reflected in his note. Patient still with some mild shortness of breath. We will try 1 dose of Lasix to see if this helps. We will also update chest x-ray. Patient has recurrent nausea and vomiting. I do wonder she does have gastroparesis. We will try 1 dose of IV Reglan as well and assess for response. All else as outlined above. Continue current treatment for pneumonia as outlined above. Insulin sliding scale added for hyperglycemia, likely at least in part a byproduct of steroids.
--- NOTE | 2017-09-03 14:06 | Electrocardiograph Report ---
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
[2017-09-03] MEDS ORDERED: Furosemide 20 MG/2 ML VIAL IVP ONE (14:28)
[2017-09-03] MEDS ORDERED: Dextrose Gel 15 GM PO PRN ×2 (14:34)
[2017-09-03] MEDS ORDERED: *HR* Dextrose 50 % in Water (Syg) 50 ML SYRINGE IVP PRN (14:34)
[2017-09-03] MEDS ORDERED: D5% in Water 1,000 ML IVC PRN (14:34)
[2017-09-03] MEDS ORDERED: Metoclopramide 10 MG/2 ML VIAL IVP ONE (15:21)
[2017-09-03] MEDS: Pantoprazole 40 MG VIAL IVP SCH (16:01)
[2017-09-03] MEDS: Insulin LISPRO 300 UNITS/3 ML VIAL SQ SCH ×2 (16:02→21:13)
[2017-09-03] MEDS ORDERED: Levofloxacin 750 MG/150 ML 750 MG/150 ML BAG IVPB SCH (21:00)
[2017-09-04] MEDS: MethylPREDNISolone 40 MG/ML VIAL IVP SCH ×4 (00:30→23:28)
[2017-09-04] MEDS: 0.9 % Sodium Chloride 1,000 ML IVC SCH ×2 (03:22→15:30)
[2017-09-04] MEDS: Ipratropium/Albuterol Neb 3 ML IH SCH ×3 (04:00→07:35)
[2017-09-04 04:17] LABS: Basophils % 0.2 %; Hematocrit 35.5 % (35.3-44.9); Immature Granulocytes % 1.4 % (0-4); Lymphocytes # 0.5 K/mcL (0.6-4.6); Lymphocytes % 3.6 %; Mean Corpuscular HGB Conc 33.8 g/dL (31.6-35.5); Mean Corpuscular Hemoglobin 30.1 pg (28.0-33.3); Mean Platelet Volume 9.7 fL (9.4-12.4); Monocytes # 0.5 K/mcL (0.0-1.3); Neutrophils # 11.3 K/mcL (1.6-8.9); Platelet Count 373 K/mcL (140-400); Red Blood Count 3.99 M/mcL (3.82-4.97); Red Cell Distribution Width 12.6 % (11.5-14.5); Segmented Neutrophils % 90.8 %
[2017-09-04 04:36] LABS: BUN/Creatinine Ratio 28 (6-26); Blood Urea Nitrogen 20 mg/dL (7-20); Calcium 7.6 mg/dL (8.6-10.8); Carbon Dioxide 26 mEq/L (19-29); Chloride 100 mEq/L (98-109); Glucose 139 mg/dL (70-99); Magnesium 1.5 mg/dL (1.6-2.6); Osmolality,Calculated 287 (280-300); Potassium 3.5 mEq/L (3.5-4.5); Sodium 136 mEq/L (136-145); eGFR For African Americans > 60 (> 60); eGFR For Non-African Americans > 60 (> 60)
[2017-09-04] MEDS: *HR* Heparin 5,000 UNIT/ML VIAL SQ SCH ×2 (06:15→16:52)
[2017-09-04] MEDS: Insulin LISPRO 300 UNITS/3 ML VIAL SQ SCH ×4 (07:55→20:52)
[2017-09-04] MEDS: Pantoprazole 40 MG VIAL IVP SCH (07:55)
[2017-09-04] MEDS: amLODIPine 5 MG TABLET PO SCH (07:56)
[2017-09-04] MEDS: Levalbuterol Neb 0.63 MG/3 ML IH SCH ×5 (09:06→23:52)
--- NOTE | 2017-09-04 11:11 | Internal Med Progress Note ---
<Javid Fine Tonya - Last Filed: 09/04/17 16:27> Date of Encounter: 09/04/17 - Constitutional Vitals: Temp Pulse Resp BP Pulse Ox 97.7 F 95 20 124/77 97 09/04/17 11:45 09/04/17 11:45 09/04/17 11:45 09/04/17 11:45 09/04/17 11:45 Internal Medicine: Result - Labs CBC & Chem 7: 09/04/17 03:34 09/04/17 03:34 Labs: Short CBC 09/04/17 Range/Units 03:34 WBC 12.4 H (4.3-11.1) K/mcL Hgb 12.0 (11.5-15.4) g/dL Hct 35.5 (35.3-44.9) % Plt Count 373 (140-400) K/mcL Neutrophils # 11.3 H (1.6-8.9) K/mcL BMP 09/04/17 03:34 Sodium 136 Potassium 3.5 Chloride 100 Carbon Dioxide 26 BUN 20 Creatinine 0.71 Glucose 139 H Calcium 7.6 L - ABG Interpretation ABG results: ABG ABG pH 7.52 pH Units (7.32-7.45) H 09/01/17 19:25 ABG pCO2 39 mmHg (35-45) 09/01/17 19:25 ABG pO2 54 mmHg (85-104) L 09/01/17 19:25 ABG O2 Saturation 90 % (95-98) L 09/01/17 19:25 PT/INR, D-dimer PT 14.6 Seconds (9.4-12.1) H 09/01/17 19:20 - Impressions Impressions Chest X-Ray 09/04/17 08:00 IMPRESSION: Improved appearance of the chest over the past 3 days, findings consistent with resolving pneumonia There is a new small nodule overlying the right lateral lung base which is new from. Recommend either a CT of the chest, or a short-term follow-up PA and lateral view chest x-ray in 3 weeks for further evaluation D/ / Lance Andersen MD / Lance Andersen MD Interpreting Provider: Lance Andersen MD Consult Discharge Plan - Plan Referrals: Tin Castillo, NURSE CLINICIAN [Advanced Practice Nurse] - - Attending Attestation He performed an independent interview and exam of this patient. I discussed the case and reviewed all findings assessment and plan with Dr. Reina medicine resident of which I am in agreement. Patient is improving. Anticipate discharge home possibly tomorrow if she continues to do well. She will need complete a 10 day course of antibiotics. Close follow-up with outpatient chest x-ray in 4 weeks. As outlined above. <Bruce Reina - Last Filed: 09/04/17 16:48> Date of Encounter: 09/04/17 Time of Encounter: 08:00 - Assessment and plan (1) Sepsis Current Visit: Yes Status: Acute Assessment and plan: Tachycardia, leukocytosis, fever. Likely secondary to community-acquired pneumonia. WBC count had normalized yesterday. We discontinued Rocephin and started Flagyl due to her history of recent intubation for GI procedure. Mild leukocytosis remains, likely explained by steroids. She remains afebrile Serology came back positive for parainfluenza 3 only. UA significant for small leukocyte esterase, final urine culture was negative, patient does not have symptoms of UTI Qualifiers: Sepsis type: sepsis due to unspecified organism Qualified Code(s): A41.9 - Sepsis, unspecified organism (2) Community acquired pneumonia Current Visit: Yes Status: Acute Assessment and plan: CXR with patchy airspace opacities bilateral mid to lower lungs. Currently on IV Levaquin and Flagyl. O2 saturation 98% on 2 L nasal cannula Shortness of breath is stable but not improving. Repeat PA + lateral CXR pending Patient was given a dose of Lasix yesterday Qualifiers: Laterality: right Lung location: unspecified part of lung Qualified Code( s): J18.9 - Pneumonia, unspecified organism (3) Emesis Current Visit: Yes Status: Acute Assessment and plan: Given Reglan + Protonix for nonbloody emesis yesterday with associated moderate mid abdominal pain and tenderness. She was suffering from chronic vomiting prior to her recent GI procedure as well. No diarrhea. Today she states this has resolved Qualifiers: Qualified Code(s): R11.10 - Vomiting, unspecified (4) Metabolic alkalosis Current Visit: Yes Status: Acute Assessment and plan: Postprandial emesis for at least several weeks, EGD and dilation performed last week. Supplement potassium and magnesium, Zofran PRN nausea (5) Hypokalemia Current Visit: Yes Status: Acute Assessment and plan: Most likely related to recent vomiting. Potassium decreased to 2.5 at one point. Currently normal (6) Hypomagnesemia Current Visit: Yes Status: Acute Assessment and plan: Again a little low this morning, will replace - Subjective Interval history: Ms. Dunbar has a history of COPD and bioprosthetic aortic valve replacement 2011. She presented to ED last night with SOB worsening over the past 3 days. Increased oxygen requirement from 2 L at night to up to 5 L throughout the day. Patient seen and examined at bedside. She was awake and alert, undergoing treatment. Her breathing remains significantly better relative to admission. She states that her abdominal discomfort and emesis have resolved. She denies chest pain, fever, or chills - Constitutional Vitals: Temp Pulse Resp BP Pulse Ox 97.8 F 97 18 114/66 96 09/04/17 07:28 09/04/17 07:28 09/04/17 07:35 09/04/17 07:35 09/04/17 07:35 General appearance: Present: A&O X 3, pleasant, no acute distress - Respiratory Respiratory exam: Present: decreased breath sounds, rales, rhonchi, wheezes. Absent: respiratory distress - Cardiovascular Cardiovascular exam: Present: RRR, +S1, +S2, systolic murmur. Absent: gallop, rubs - Extremities Exam Extremities exam: Present: warm, radial pulses palpable and symmetrical. Absent : calf tenderness, cyanotic, pedal edema - Neurological Exam Neurological exam: Present: alert, oriented X3, no focal deficits Internal Medicine: Result - Labs CBC & Chem 7: 09/04/17 03:34 09/04/17 03:34 Labs: Short CBC 09/04/17 Range/Units 03:34 WBC 12.4 H (4.3-11.1) K/mcL Hgb 12.0 (11.5-15.4) g/dL Hct 35.5 (35.3-44.9) % Plt Count 373 (140-400) K/mcL Neutrophils # 11.3 H (1.6-8.9) K/mcL BMP 09/04/17 03:34 Sodium 136 Potassium 3.5 Chloride 100 Carbon Dioxide 26 BUN 20 Creatinine 0.71 Glucose 139 H Calcium 7.6 L - ABG Interpretation ABG results: ABG ABG pH 7.52 pH Units (7.32-7.45) H 09/01/17 19:25 ABG pCO2 39 mmHg (35-45) 09/01/17 19:25 ABG pO2 54 mmHg (85-104) L 09/01/17 19:25 ABG O2 Saturation 90 % (95-98) L 09/01/17 19:25 PT/INR, D-dimer PT 14.6 Seconds (9.4-12.1) H 09/01/17 19:20 - Impressions Impressions Chest X-Ray 09/04/17 08:00
[2017-09-04] MEDS: Magnesium Oxide 400 MG TABLET PO SCH (12:06)
[2017-09-04] MEDS ORDERED: Saline Nasal Spray 44 ML BOTTLE NS PRN (12:13)
[2017-09-04] MEDS: traMADol 50 MG TABLET PO PRN (16:52)
[2017-09-05] MEDS: 0.9 % Sodium Chloride 1,000 ML IVC SCH (01:10)
[2017-09-05] MEDS: Levalbuterol Neb 0.63 MG/3 ML IH SCH ×4 (04:53→16:17)
[2017-09-05] MEDS: *HR* Heparin 5,000 UNIT/ML VIAL SQ SCH (05:55)
[2017-09-05 06:25] LABS: BUN/Creatinine Ratio 17 (6-26); Basophils % 0.4 %; Blood Urea Nitrogen 11 mg/dL (7-20); Calcium 7.1 mg/dL (8.6-10.8); Carbon Dioxide 26 mEq/L (19-29); Chloride 101 mEq/L (98-109); Glucose 144 mg/dL (70-99); Hematocrit 34.7 % (35.3-44.9); Hemoglobin 11.7 g/dL (11.5-15.4); Immature Granulocytes % 4.9 % (0-4); Lymphocytes # 0.7 K/mcL (0.6-4.6); Lymphocytes % 6.6 %; Mean Corpuscular HGB Conc 33.7 g/dL (31.6-35.5); Mean Corpuscular Hemoglobin 30.2 pg (28.0-33.3); Mean Corpuscular Volume 89.4 fL (83.0-100.0); Mean Platelet Volume 9.6 fL (9.4-12.4); Monocytes # 0.4 K/mcL (0.0-1.3); Monocytes % 4.4 %; Neutrophils # 8.2 K/mcL (1.6-8.9); Osmolality,Calculated 280 (280-300); Platelet Count 298 K/mcL (140-400); Potassium 3.5 mEq/L (3.5-4.5); Red Blood Count 3.88 M/mcL (3.82-4.97); Red Cell Distribution Width 12.8 % (11.5-14.5); Segmented Neutrophils % 83.7 %; Sodium 134 mEq/L (136-145); eGFR For African Americans > 60 (> 60); eGFR For Non-African Americans > 60 (> 60)
[2017-09-05 06:47] LABS: Magnesium 1.7 mg/dL (1.6-2.6)
[2017-09-05] MEDS: MethylPREDNISolone 40 MG/ML VIAL IVP SCH (07:46)
[2017-09-05] MEDS: amLODIPine 5 MG TABLET PO SCH (07:46)
[2017-09-05] MEDS: Pantoprazole 40 MG VIAL IVP SCH (07:46)
[2017-09-05] MEDS: Magnesium Oxide 400 MG TABLET PO SCH (07:46)
[2017-09-05] MEDS: Insulin LISPRO 300 UNITS/3 ML VIAL SQ SCH ×2 (07:48→12:08)
[2017-09-05 12:06] VITALS: BP 124/75
--- NOTE | 2017-09-05 15:08 | Discharge Summary ---
Date of Encounter: 09/05/17 Time of Encounter: 14:58 - Discharge Diagnosis (1) Sepsis Priority: Primary Status: Acute Qualifiers: Sepsis type: sepsis due to unspecified organism Qualified Code(s): A41.9 - Sepsis, unspecified organism (2) Community acquired pneumonia Priority: Primary Status: Acute Qualifiers: Laterality: right Lung location: unspecified part of lung Qualified Code( s): J18.9 - Pneumonia, unspecified organism (3) Metabolic alkalosis Priority: Primary Status: Acute (4) Emesis Priority: Secondary Status: Acute Qualifiers: Qualified Code(s): R11.10 - Vomiting, unspecified (5) Hypokalemia Priority: Secondary Status: Acute (6) Hypomagnesemia Priority: Secondary Status: Acute - Discharge Medications Home Medications: Acetaminophen [Pain Relief] 500 mg PO DAILY PRN 06/15/17 [History] Calcium Carbonate [Calcium] 500 mg PO DAILY 06/15/17 [History] Metoprolol [Lopressor] 25 mg PO BID 06/15/17 [History] Montelukast [Singulair] 10 mg PO DAILY 06/15/17 [History] Multivit-Min/FA/Lycopen/Lutein [Centrum Silver Tablet] 1 tab PO DAILY 06/15/17 [ History] Potassium Chloride [K-Tab ER] 10 meq PO DAILY 06/15/17 [History] Tiotropium [Spiriva] 18 mcg IH 0700 06/15/17 [History] Tramadol HCl [Ultram] 50 - 100 mg PO Q4H PRN 06/15/17 [History] Vit A/Vit C/Vit E/Zinc/Copper [Preservision Areds Tablet] 1 tab PO BID 06/15/17 [History] Zolpidem [Ambien] 5 mg PO HS PRN 06/15/17 [History] amLODIPine [Norvasc] 5 mg PO DAILY 06/15/17 [History] hydroCHLOROthiazide [Hydrochlorothiazide] 25 mg PO DAILY 06/15/17 [History] Aspirin 81 mg PO DAILY 08/26/17 [History] Atorvastatin Calcium [Lipitor] 20 mg PO DAILY 08/26/17 [History] Ferrous Gluconate 324 mg PO BID 08/26/17 [History] Gabapentin [Neurontin] 100 mg PO TID 08/26/17 [History] Loratadine [Allergy Relief] 10 mg PO DAILY 08/26/17 [History] raNITIdine HCl [Ranitidine HCl] 150 mg PO DAILY 08/26/17 [History] Levalbuterol Neb [Xopenex Neb] 0.63 mg IH [id number] vial.neb 09/05/17 [Rx] Levofloxacin [Levaquin] 750 mg PO DAILY #5 tablet 09/05/17 [Rx] predniSONE [Prednisone] 10 mg PO DAILY 9 Days #21 tab.ds.pk 09/05/17 [Rx] Allergies/Adverse Reactions: 3 Allergy/AdvReac Type Severity Reaction Status Date / Time No Known Allergies Allergy Verified 08/26/17 09:28 Procedures/tests Complete & Pending: Procedures Performed prior 72 hours Category Date Time Status EKG [ECG 12 lead ECG] [ECG] Routine Y 09/03/17 08:17 Ordered Date of admission: 09/02/17 09:00 Primary care physician: PCP NONE Consults: 09/03/17 14:29 OT [Consult to Occupational Therapy] [CONS] Routine Comment: Evaluate, develop and implement POC Reason for Consult: weakness PT [Consult to Physical Therapy] [CONS] Routine Comment: Evaluate, develop and implement POC Reason for Consult: weakness Discharging clinician: Jvaid Fine Anticipated date of discharge: 09/05/17 - Patient Status Disposition: Home, Self-Care Condition: Fair Functional capacity at discharge: uses cane/walker Overall status at discharge: patient is progressing back to baseline - Discharge Instructions Follow Up With: Tin Castillo, [employer] [Advanced Practice Nurse] - - Diet and Activity Activity: resume usual activities as tolerated Diet: advance to your usual diet Interval History: pt seen and examined at bedside this morning and again this afternoon. She feels like her breathing and general state of health are much improved. She is requesting to go home Hospital course: Ms. Dunbar is a 89 year old female with past medical history including COPD on 2L and bioprosthetic aortic valve replacement 2011. She presented to ED 09/01 with SOB worsening over the prior 3 days. Increased oxygen requirement from 2 L up to 5 L. CXR revealed patchy airspace opacities bilateral mid to lower lungs. She was started on IV Levaquin and Flagyl to cover for aspiration pneumonia given her recent intubation for GI procedure, esophageal dilation. She improved clinically and Flagyl was stopped, she will be discharged with a Rx for 5 more days of Levaquin which will compete a 10 total course. She required a couple of doses of Lasix which helped with her dyspnea. She had some non-bloody emesis for 1 day which resolved with Reglan and Protonix. We will also send her home with a Rx for prednisone taper Recommend follow up chest x-ray in 4 weeks (Around ) - Time Spent with Patient Total time spent providing and/or coordinating discharge services: Greater than 30 minutes - Constitutional Vitals: Temp Pulse Resp BP Pulse Ox 97.9 F 90 20 124/75 96 09/05/17 12:00 09/05/17 12:00 09/05/17 12:00 09/05/17 12:00 09/05/17 12:00 General appearance: Present: A&O X 3, pleasant, no acute distress - Respiratory Respiratory exam: Present: decreased breath sounds, rhonchi (improved from prior exam), wheezes - Cardiovascular Cardiovascular exam: Present: RRR, +S1, +S2, systolic murmur. Absent: gallop, rubs - Extremities Exam Extremities exam: Present: warm, radial pulses palpable and symmetrical. Absent : calf tenderness, cyanotic, pedal edema - Neurological Exam Neurological exam: Present: alert, oriented X3, no focal deficits
--- NOTE | 2017-09-06 19:13 | Electrocardiograph Report ---
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
== END 2017-09-05 16:55 | disposition home or self-care (01) | DRG 871 ==
LOC: EMEROO 18:50 → 2NNU 18:50
PROVIDERS: ADMIT Internal Medicine; ATTEND Student in an Organized Health Care Education/Training Program